=== PATIENT | male | born 1970 | race Caucasian/White ===

== ENCOUNTER 2020-07-05 11:35 | Emergency (ER) | payer OTHER ==
[2020-07-05] MEDS ORDERED: Morphine 4 MG/ML VIAL ONE ×2 (12:03→14:36)
[2020-07-05] MEDS ORDERED: Ketorolac Tromethamine 30 MG/ML VIAL ONE (12:04)
[2020-07-05] MEDS ORDERED: Diazepam 5 MG TAB ONE (12:04)
[2020-07-05 13:21] LABS: #Monocytes 0.6 10x3/uL (0.0-1.1); #Neutrophils 4.1 10x3/uL (1.5-8.4); %Basophils 0.6 % (0.0-2.0); %Eosinophils 0.4 % (0.0-6.0); %Lymphocytes 33.1 % (18.0-47.0); %Monocytes 8.3 % (0.0-10.0); %Neutrophils 57.3 % (40.0-75.0); Mean Corpuscular Hemoglobin 32.7 pg (27.0-33.0); Mean Corpuscular Volume 90.6 fl (81.2-95.1); Mean Platelet Volume 10.3 fl (7.4-10.4); Platelet Count 196 10x3/uL (150-450); RBC Distribution Width 12.2 % (11.5-14.5); White Blood Cell (WBC) Count 7.1 10x3/uL (3.5-10.5)
[2020-07-05 13:27] LABS: ALT (SGPT) 32 U/L (8-55); AST (SGOT) 35 U/L (5-34); Albumin 4.8 g/dL (3.5-5.0); Alkaline Phosphatase 60 U/L (40-110); Anion Gap 16 mmol/L (10-20); BUN (Urea Nitrogen) 6 mg/dL (8.9-20.6); Bilirubin, Total 0.6 mg/dL (0.2-1.2); Calc. Creatinine Clearance 0 mL/min (70-130); Calcium 10.2 mg/dL (7.8-10.44); Carbon Dioxide 24 mmol/L (22-29); Chloride 104 mmol/L (98-107); Globulin 3.5 g/dL (2.4-3.5); Glucose 89 mg/dL (70-105); Potassium 3.8 mmol/L (3.5-5.1); Protein, Total 8.3 g/dL (6.0-8.3); Sodium 140 mmol/L (136-145)
== END 2020-07-05 17:05 ==
LOC: CSHERS 11:35 → EEVIPCON 11:35 → CSHERS 17:05
DX: M54.12 Radiculopathy, cervical region (principal)
CPT/HCPCS: 71045; 72125; 72128; 80053; 85025; 85379; 96372; 96374; 96376; J1885; J2270

== ENCOUNTER 2020-08-31 21:56 | Emergency (ER) | payer OTHER ==
[2020-08-31] MEDS ORDERED: Haloperidol Lactate 5 MG/ML VIAL ONE (22:18)
[2020-08-31 22:22] LABS: #Eosinphils 0.1 10x3/uL (0.0-0.5); #Monocytes 0.6 10x3/uL (0.0-1.1); %Basophils 0.6 % (0.0-2.0); %Eosinophils 1.9 % (0.0-6.0); %Lymphocytes 33.5 % (18.0-47.0); %Monocytes 8.3 % (0.0-10.0); %Neutrophils 55.6 % (40.0-75.0); Hemoglobin 14.9 g/dL (13.5-17.5); Mean Corpuscular HGB CONC 35.8 g/dL (32.0-36.0); Mean Corpuscular Hemoglobin 32.9 pg (27.0-33.0); Mean Corpuscular Volume 91.8 fl (81.2-95.1); Platelet Count 162 10x3/uL (150-450); RBC Distribution Width 12.2 % (11.5-14.5); Red Blood Cell (RBC) Count 4.53 10x6/uL (4.32-5.72); White Blood Cell (WBC) Count 7.2 10x3/uL (3.5-10.5)
[2020-08-31 22:37] LABS: PTT 24.8 sec (22.0-33.0); Prothrombin Time 10.7 sec (9.5-12.1)
[2020-08-31 23:13] LABS: Acetaminophen Less than 6.0 mcg/mL (10.0-30.0); Alcohol 354 mg/dL (Less than 10); Salicylate Less than 8.0 mg/dL (15.0-30.0)
[2020-08-31 23:15] LABS: ALT (SGPT) 22 U/L (8-55); AST (SGOT) 23 U/L (5-34); Albumin 4.4 g/dL (3.5-5.0); Alkaline Phosphatase 61 U/L (40-110); Anion Gap 14 mmol/L (10-20); BUN (Urea Nitrogen) 13 mg/dL (8.9-20.6); Bilirubin, Total 0.3 mg/dL (0.2-1.2); Calc. Creatinine Clearance 0 mL/min (70-130); Calcium 9.1 mg/dL (7.8-10.44); Carbon Dioxide 24 mmol/L (22-29); Chloride 110 mmol/L (98-107); Globulin 3.1 g/dL (2.4-3.5); Glucose 120 mg/dL (70-105); Lipase 43 U/L (8-78); Potassium 3.3 mmol/L (3.5-5.1); Protein, Total 7.5 g/dL (6.0-8.3); Sodium 145 mmol/L (136-145)
[2020-08-31 23:32] LABS: Actual Bicarbonate (HCO3a) 24.5 mEq/L (22-28); Base Excess (BEa) -3.3 mEq/L (-2.0 to +3.0); CO2 Tension 54.5 mmHg (35.0-45.0); Calcium, Ionized (arterial) 1.22 mmol/L (1.12-1.30); Carboxyhemoglobin (COHb) 0.3 gm% (0.0-3.0); Hemoglobin (Hb) 15.1 g/dL (14.0-18.0); O2 Tension (PaO2), arterial 177.2 mmHg (80.0-100.0); Potassium - ABG Lab 3.5 mmol/L (3.70-5.30); Puncture Site RRA; pH, Arterial 7.27 (7.35-7.45)
[2020-09-01] MEDS ORDERED: Lidocaine 1% w/Epinephrine 1:100K 20 ML VIAL ONE (00:13)
[2020-09-01] MEDS ORDERED: Bacitracin 1 PK ONE (03:08)
[2020-09-01 04:36] LABS: Bilirubin Neg (Negative); Blood, Urine Negative (Negative); Clarity Clear (Clear); Glucose, Urine (Dipstick) Normal (Negative); Ketone, Urine Negative (Negative); Leukocyte Negative (Negative); Nitrite Negative (Negative); Protein, Urine (Dipstick) Negative (Neg-Trace); Specific Gravity, Urine 1.005 (1.002-1.036); Urobilinogen Normal mg/dL (Less than 2)
[2020-09-01] MEDS ORDERED: Boostrix 0.5 ML (Tdap) VIAL ONE (04:39)
[2020-09-01 04:44] LABS: Amphetamine Not Detected (NotDetected); Barbiturates Screen Not Detected (NotDetected); Benzodiazepine Screen Not Detected (NotDetected); Cocaine Metabolite Screen Not Detected (NotDetected); Methadone Not Detected (NotDetected); Methamphetamine Not Detected (NotDetected); Opiate Screen Not Detected (NotDetected); Oxycodone Screen Not Detected (NotDetected); Phencyclidine (PCP) Not Detected (NotDetected); THC/Cannabinoid Screen Not Detected (NotDetected); Tricyclic Screen Not Detected (NotDetected)
== END 2020-09-01 06:41 | disposition home or self-care (01) ==
LOC: CSHERS 21:56
DX: S01.81XA Laceration without foreign body of other part of head, initial encounter (principal); F10.129 Alcohol abuse with intoxication, unspecified; E03.9 Hypothyroidism, unspecified; Z87.891 Personal history of nicotine dependence; Z23 Encounter for immunization; Z79.899 Other long term (current) drug therapy; W01.10XA Fall on same level from slipping, tripping and stumbling with subsequent striking against unspecified object, initial encounter
CPT/HCPCS: 12013; 36415; 36416; 36600; 70450; 71045; 72125; 80053; 80306; 80307; 81003; 82140; 82805; 83605; 83690; 84443; 84484; 85025; 85610; 85730; 87040; 87086; 90471; 90715; 93005; 93010; 96374; G0390; J1630

== ENCOUNTER 2024-05-27 16:31 | Emergency (ER) | payer OTHER ==
[2024-05-27] MEDS ORDERED: Morphine 4 MG/ML VIAL ONE (17:23)
[2024-05-27] MEDS ORDERED: Ketorolac Tromethamine 30 MG (1 mL) VIAL ONE (18:28)
[2024-05-27 19:05] LABS: #Basophils 0.03 10x3/uL (0.0-0.2); #Neutrophils 4.28 10x3/uL (1.5-8.4); %Basophils 0.4 % (0.0-2.0); %Eosinophils 1.3 % (0.0-6.0); %Lymphocytes 29.3 % (18.0-47.0); %Monocytes 11.9 % (0.0-10.0); %Neutrophils 56.8 % (40.0-75.0); Hematocrit 38.8 % (38.8-50.0); Hemoglobin 14.4 g/dL (13.5-17.5); Mean Corpuscular HGB CONC 37.1 g/dL (32.0-36.0); Mean Corpuscular Hemoglobin 31.7 pg (27.0-33.0); Mean Corpuscular Volume 85.5 fL (81.2-95.1); Mean Platelet Volume 9.7 fL (7.4-10.4); Platelet Count 306 10x3/uL (150-450); RBC Distribution Width 12.1 % (11.5-14.5); Red Blood Cell (RBC) Count 4.54 10x6/uL (4.32-5.72); White Blood Cell (WBC) Count 7.54 10x3/uL (3.5-10.5)
[2024-05-27 19:22] LABS: ALT (SGPT) 13 U/L (Less than 45); AST (SGOT) 24 U/L (11-34); Albumin 4.4 g/dL (3.1-4.5); Alkaline Phosphatase 61 U/L (40-110); Anion Gap 15 mmol/L (10-20); BUN (Urea Nitrogen) 8 mg/dL (8.4-25.7); Bilirubin, Total 0.6 mg/dL (0.3-1.2); Calc. Creatinine Clearance 0 mL/min (70-130); Calcium 9.8 mg/dL (7.8-10.44); Carbon Dioxide 20 mmol/L (22-29); Chloride 104 mmol/L (98-107); Estimated GFR 92; Globulin 3.7 g/dL (2.4-3.5); Glucose 93 mg/dL (70-105); Magnesium 2.1 mg/dL (1.6-2.6); Potassium 3.5 mmol/L (3.5-5.1); Protein, Total 8.1 g/dL (6.0-8.3); Sodium 135 mmol/L (136-145)
[2024-05-27 19:37] LABS: Troponin I Less than 0.010 ng/mL (< 0.028)
[2024-05-27] MEDS ORDERED: Milk Of Magnesia 30 ML UDCUP ONE (19:47)
[2024-05-27] MEDS ORDERED: Lidocaine Viscous Sol 2% 15 ml UD Cup ONE (19:48)
== END 2024-05-27 20:14 | disposition home or self-care (01) ==
LOC: CSHERS 16:31
DX: R07.2 Precordial pain (principal); E03.9 Hypothyroidism, unspecified; Z87.891 Personal history of nicotine dependence; Z79.890 Hormone replacement therapy; Z79.899 Other long term (current) drug therapy
CPT/HCPCS: 36415; 71045; 80053; 83735; 84484; 85025; 85379; 93005; 96374; 96375; J1885; J2270